=== PATIENT | female | born 1975 | race Hispanic/Latino ===

== ENCOUNTER → 2018-09-21 | Outpatient (CLI) | payer OTHER ==
--- NOTE | 2018-09-21 12:51 | REPMRS ---
Patient History The patient states she has not had a clinical breast exam in over a year. Patient had first child at age 37. Family history of colorectal cancer at age 73 in father. Digital Mammo Screening Bilat: September 21, 2018 - Exam #: [id number] Bilateral CC and MLO view(s) were taken. Technologist: Modesta Hernandez, Technologist No prior studies available for comparison. FINDINGS: The breast tissue is heterogeneously dense. This may lower the sensitivity of mammography. There is no evidence of cancer on this mammogram. Assessment: BI-RADS/ACR category 2 mammogram. Benign Findings. Recommendation Routine screening mammogram of both breasts in 1 year (for women over age 40). This mammogram was interpreted with the aid of an FDA-approved computer-aided dectection system. Electronically Signed By: Isac Olivares MD 09/21/18 [id number]
== END ==
LOC: M RAD 09:27
PROVIDERS: ATTEND Family Medicine
DX: Z12.31 Encounter for screening mammogram for malignant neoplasm of breast (principal); Z80.0 Family history of malignant neoplasm of digestive organs

== ENCOUNTER 2018-11-06 09:59 | Day surgery (SDC) | payer OTHER ==
[~2018-11-06] VITALS: Ht 167.6 cm; Wt 74.0 kg
[~2018-11-06 09:59] MED LIST: ACETAMINOPHEN 650 MG SUPP PR ONE; CLINDAMYCIN 900 MG in APPROPRIATE DILUENT 1 EA IV ONE; HYDR25TAB PO; LR 1,000 ML IV ONE; PROAAER10 INH
[2018-11-06] MEDS ORDERED: MIDAZOLAM INJ 2 MG/2 ML VIAL (J2250) As Ordered ONE (10:20)
[2018-11-06] MEDS ORDERED: ONDANSETRON 4MG/2ML VIAL (J2405) As Ordered ONE (10:20)
[2018-11-06] MEDS ORDERED: fentaNYL 100 MCG/2 ML INJECTION (J3010) As Ordered ONE ×2 (10:20→14:22)
[2018-11-06] MEDS ORDERED: dexameTHASONE 4 MG/ML 1ML VIAL (J1100) As Ordered ONE (10:20)
[2018-11-06] MEDS ORDERED: PROPOFOL 200 MG/20 ML VIAL As Ordered ONE (10:21)
[2018-11-06] MEDS ORDERED: LIDOCAINE 2% INJ 100 MG/5 ML SDV (FOR ANES.) As Ordered ONE (10:21)
[2018-11-06] MEDS ORDERED: ROCURONIUM BROMIDE 50 MG/5 ML VIAL As Ordered ONE (10:21)
[2018-11-06 10:26] LABS: HEMOGLOBIN 14.7 g/dl (12.0-15.5); MEAN CORPUSCULAR HEMOGLOBIN 31.7 pg (27.0-33.0); MEAN CORPUSCULAR VOLUME 90.7 fl (80.0-96.0); PLATELET COUNT, AUTOMATED 219 10^3/uL (150-450); RED BLOOD COUNT 4.63 10^6/uL (4.00-5.40); WHITE BLOOD COUNT 9.1 10^3/uL (4.0-10.0)
[2018-11-06 10:47] LABS: BLOOD UREA NITROGEN 11 MG/DL (7-18); CALCIUM LEVEL 8.9 MG/DL (8.5-10.1); CARBON DIOXIDE LEVEL 27 MEQ/L (21-32); CHLORIDE LEVEL 106 MEQ/L (98-107); CREATININE FOR GFR 0.67 MG/DL (0.55-1.30); GLOMERULAR FILTRATION RATE > 60.0 (>58); GLUCOSE, FASTING 80 MG/DL (70-100); SODIUM LEVEL 140 MEQ/L (136-145)
[2018-11-06] MEDS ORDERED: ALBUTEROL SULFATE 2.5 MG/0.5 ML INH NEB SOLN As Ordered ONE (11:46)
[2018-11-06] MEDS ORDERED: LORATADINE 10 MG TAB PO ONE (12:00)
[2018-11-06] MEDS ORDERED: ALBUTEROL SULFATE 2.5 MG/0.5 ML INH NEB SOLN INH ONE (12:00)
[2018-11-06] MEDS ORDERED: ACETAMINOPHEN 650 MG SUPP As Ordered ONE (12:19)
[2018-11-06] MEDS ORDERED: BUPIVACAINE HCL 0.5% 10 ML VIAL As Ordered ONE (12:19)
[2018-11-06] MEDS ORDERED: METHYLENE BLUE 0.5% (5MG/ML) 10 ML AMP (PROVAYBLUE)(Q9968 PER 1MG) As Ordered ONE (13:25)
[2018-11-06] MEDS ORDERED: KETOROLAC 60 MG/2 ML VIAL (J1885) As Ordered ONE (13:56)
[2018-11-06] MEDS ORDERED: diphenhydrAMINE INJ 50MG/ML VIAL (J1200) As Ordered ONE (14:21)
[2018-11-06] MEDS ORDERED: PERCOCET 5MG/325MG TAB PO PRN (14:45)
[2018-11-06] MEDS ORDERED: LR 1,000 ML IV SCH (14:45)
[2018-11-06] MEDS ORDERED: ONDANSETRON 4MG/2ML VIAL (J2405) IV PRN (14:45)
[2018-11-06] MEDS: fentaNYL 100 MCG/2 ML INJECTION (J3010) IV PRN ×4 (14:50→15:05)
[2018-11-06] MEDS ORDERED: oxyCODONE 5MG TAB PO ONE (15:15)
[2018-11-06] MEDS ORDERED: oxyBUTYnin 5 MG TAB PO ONE (15:45)
[2018-11-06 17:00] VITALS: BP 138/74
[2018-11-06] MEDS ORDERED: KETOROLAC 30 MG/ML VIAL (J1885) IM PRN (20:00)
--- NOTE | 2018-11-10 20:07 | RO ---
DATE OF PROCEDURE: 11/06/2018 PREOPERATIVE DIAGNOSIS: Right lower quadrant pain post hysterectomy and incomplete bladder emptying and bladder spasm. POSTOPERATIVE DIAGNOSIS: Fixed right ovary to the right ureteric mid section and adhesions of bladder to the anterior abdominal wall. OPERATION PROPOSED: Operative laparoscopy, right oophorectomy, release of adhesions and cystoscopy with dye. OPERATION PERFORMED: Operative laparoscopy, right oophorectomy, release of anterior bladder adhesions, cystoscopy with dye. ANESTHESIA: General plus local anesthetic for intraperitoneal procedures. ESTIMATED BLOOD LOSS: 25 mL SURGEON: Wes Suh MD [employer] CHEMIST: Nikki Nieto MD for extraction, retraction and visualization. DESCRIPTION OF PROCEDURE: After adequate time-out, prepped and draped in lithotomy position, Gorman catheter in the bladder draining clear urine. Acetaminophen suppository 1300 mg per rectum, sequentials in place, antibiotics because of cysto manipulation, a subumbilical incision was made. Veress needle was applied. 3.8 liters of CO2 to flow rate of 14 to a pressure of 15, direct entry in the abdomen. No evidence of perforation, hemorrhage or bleeding. Right upper quadrant was normal. Left upper quadrant was normal. There was significant adhesions in the cul-de-sac. On the anterior aspect of the bladder to the vault line from previous LAVH the right adnexa was adherent to the right side mid ureteral area. It looked like endometriosis, although pathology will be definitive. It was fixed significantly which is probably the etiology behind this lady's right lower quadrant pain. A 5 mm port on the right side, a 10 mm port on the left side. We then released and removed all adhesions of the bladder to the anterior aspect of the vault and the bladder fell back into its normal anatomical correct position. We then pulled the right ovary over, identified the identified the lady's ureter which was underneath the ovary. Using the LigaSure we excised off that ovary for the peritoneal surface and we removed it through the 10 mm port and sent it off to pathology for analysis. With that done we irrigated out. No evidence of active bleeding. We were able to identify the ureter and it was moving on the right side; the left side was normal. Left ovarian area was normal as well. With that done and with instrument and pad count correct we deflated to 4 mm pressure, removed the 5 mm , the 8 mm port under direct vision. We put a Dhaval-Mack stitch in to close off the fascia and then subumbilical incisions, Marcaine 0.25% to the skin and skin tapes. Going below, we removed the Gorman catheter. We cystoscoped the patient. The bubbles anterior. Os on either side were normally noted with methylene blue in place we saw dye shoot through both ureteral orifices indicating patency of both ureters. With that done the cystoscope was removed. The bladder was deflated and Gorman catheter was removed and the patient was sent to recovery in good condition.
== END 2018-11-06 17:23 | disposition home or self-care (01) ==
LOC: M SDC 09:59
PROVIDERS: ATTEND Obstetrics & Gynecology
DX: N83.11 Corpus luteum cyst of right ovary (principal); N73.6 Female pelvic peritoneal adhesions (postinfective); N32.89 Other specified disorders of bladder; R33.9 Retention of urine, unspecified; I10 Essential (primary) hypertension; M54.9 Dorsalgia, unspecified; J45.909 Unspecified asthma, uncomplicated; Z85.51 Personal history of malignant neoplasm of bladder; Z88.5 Allergy status to narcotic agent; Z88.0 Allergy status to penicillin; Z79.899 Other long term (current) drug therapy; Z90.710 Acquired absence of both cervix and uterus
CPT/HCPCS: 36415; 58661; 80048; 85027; 88305; J1100; J1200; J1885; J2250; J2405; J3010; Q9968